=== PATIENT | female | born 1985 ===

== ENCOUNTER 2020-08-02 22:04 | Emergency (ER) | payer OTHER ==
[~2020-08-02] VITALS: Ht 149.9 cm; Wt 49.9 kg
--- NOTE | 2020-08-02 22:57 | NUR ---
MD Wooten in room to do MSE.
[2020-08-02 23:09] LABS: *BILIRUBIN,URIN NEGATIVE (NEGATIVE); *CLARITY,URINE CLEAR (CLEAR); *KETONES,URINE NEGATIVE (NEGATIVE); *UROBILINOGEN,URINE 0.2 E.U./dl (NORMAL); LEUKOCYTE ESTERASE ,URINE NEGATIVE (NEGATIVE); NITRITE, URINE NEGATIVE (NEGATIVE); PH,URINE 5.5 (5.0-8.0); UGLUCOSE NEGATIVE (NEGATIVE)
[2020-08-02 23:18] LABS: *BLOOD, URINE TRACE (NEGATIVE); *COLOR,URINE STRAW (YELLOW); BACTERIA,URINE NONE SEEN /HPF (NONE SEEN); RBC,URINE 0-3 /HPF (0-3); SQUAMOUS EPITHELIAL CELL,UR FEW /HPF (NONE SEEN); WBC,URINE NONE SEEN /HPF (0-3)
[2020-08-02] MEDS: ONDANSETRON 4 MG/2 ML VIAL IV ONE (23:31)
[2020-08-02] MEDS: HYDROCODONE/APAP 10-325 MG TABLET PO ONE (23:32)
[2020-08-02] MEDS: IV NORMAL SALINE 1000 ML BAG IV ONE (23:33)
[2020-08-02] MEDS ORDERED: HYDROCODONE/APAP 10-325 MG TABLET ONE (23:35)
[2020-08-02] MEDS ORDERED: ONDANSETRON 4 MG/2 ML VIAL ONE (23:36)
[2020-08-02 23:39] LABS: BASOPHILS # (AUTO) 0.1 K/uL (0.0-8.0); BASOPHILS % (AUTO) 1.1 % (0.0-2.0); EOSINOPHILS # (AUTO) 0.5 K/uL (0.0-0.7); HEMATOCRIT 37.3 % (31.2-41.9); HEMOGLOBIN 12.4 g/dL (10.9-14.3); LYMPHOCYTES # (AUTO) 2.2 K/uL (20.0-40.0); LYMPHOCYTES % (AUTO) 34.5 % (20.5-51.5); MEAN CORPUSCULAR HEMOGLOBIN 30.4 uug (24.7-32.8); MEAN CORPUSCULAR HGB CONC 33 g/dL (32.3-35.6); MEAN CORPUSCULAR VOLUME 91.5 fL (75.5-95.3); MONOCYTES # (AUTO) 0.4 K/uL (2.0-10.0); MONOCYTES % (AUTO) 6.6 % (0.0-11.0); NEUTROPHILS # (AUTO) 3.1 K/uL (1.8-8.9); NEUTROPHILS % (AUTO) 49.8 % (38.5-71.5); PLATELET COUNT (AUTO) 267 K/uL (179-408); RED BLOOD CELL COUNT(AUTO) 4.07 MIL/uL (3.63-4.92); WHITE BLOOD COUNT (AUTO) 6.3 K/uL (3.8-11.8)
[2020-08-02 23:45] LABS: CARBON DIOXIDE 26 mmol/L (21-32); CHLORIDE 106 mmol/L (98-107); CREATININE 0.8 mg/dL (0.6-1.3); GLUCOSE 80 mg/dL (74-106); POTASSIUM 4.1 mmol/L (3.5-5.1); UREA NITROGEN, BLOOD 8 mg/dL (7-18)
[2020-08-03] MEDS ORDERED: diphenhydrAMINE 50 MG/1 ML VIAL ONE (00:01)
[2020-08-03] MEDS: diphenhydrAMINE 50 MG/1 ML VIAL IV ONE (00:16)
[2020-08-03] MEDS ORDERED: ONDA4TAB11 PO (00:33)
--- NOTE | 2020-08-03 00:41 | NUR ---
IV NS started 2316 and IV NS stop time was 0040.
[2020-08-03 00:42] VITALS: BP 105/64
--- NOTE | 2020-08-03 00:44 | NUR ---
Patient discharged to home in stable condition. Written and verbal after care instructions given. Patient verbalizes understanding of instructions. Stressed follow up or return to ER for worsening s/s. Instructed not to drive home. vss.
== END 2020-08-03 00:44 | disposition home or self-care (01) ==
LOC: ER 22:04
DX: R11.10 Vomiting, unspecified (principal); R10.9 Unspecified abdominal pain; Z82.49 Family history of ischemic heart disease and other diseases of the circulatory system; Z88.6 Allergy status to analgesic agent; Z88.8 Allergy status to other drugs, medicaments and biological substances
CPT/HCPCS: 36415; 80048; 81001; 84702; 85025; 96361; 96374; 96375; 99284; J1200; J2405; J7030